=== PATIENT | male | born 1955 | race Caucasian/White ===

== ENCOUNTER 2017-03-22 15:22 | Emergency (ER) | payer BC ==
[~2017-03-22] VITALS: Ht 177.8 cm; Wt 104.0 kg
[2017-03-22] MEDS ORDERED: TETANUS, DIPHTHERIA, PERTUSSIS VAC/PF 0.5ML (>7YR OLD) IM ONE (18:00)
[2017-03-22] MEDS ORDERED: IBUPROFEN 600MG TABLET PO ONE (18:00)
[2017-03-22] MEDS ORDERED: BACITRACIN ZINC OINT UDPKT TOP ONE (18:00)
[2017-03-22] MEDS ORDERED: CEPHALEXIN 500MG CAPSULE PO ONE (18:00)
[2017-03-22 18:32] VITALS: BP 144/87
== END 2017-03-22 19:15 | disposition home or self-care (01) ==
LOC: ER 15:22
DX: L03.116 Cellulitis of left lower limb (principal); I10 Essential (primary) hypertension; L40.50 Arthropathic psoriasis, unspecified
CPT/HCPCS: 90471; 90715; 99283

== ENCOUNTER 2017-07-03 19:14 | Emergency (ER) | payer BC ==
[~2017-07-03] VITALS: Ht 180.3 cm; Wt 100.0 kg
[~2017-07-03 19:14] MED LIST: CEPH-569 PO; LISI10TA5 PO; SULF1TAB48 PO
[2017-07-03] MEDS ORDERED: ASPIRIN 81MG TABLET PO ONE (20:15)
[2017-07-03 20:25] LABS: BASOPHILS % 0.5 % (0.0-2.0); EOSINOPHILS % 1.6 % (0.0-5.0); HEMATOCRIT. 40.7 % (42.0-52.0); HEMOGLOBIN. 13.5 g/dL (14.0-18.0); LYMPHOCYTES % 18.8 % (20.0-50.0); MEAN CORPUSCULAR HEMOGLOBIN 29.1 pg (28.0-32.0); MEAN CORPUSCULAR VOLUME 87.6 fL (80.0-94.0); MEAN PLATELET VOLUME 8.3 fl (7.4-10.4); MONOCYTES % 8.4 % (2.0-8.0); NEUTROPHILS % 70.7 % (40.0-76.0); PLATELET 179 x1000/uL (130-400); RED BLOOD CELL COUNT 4.65 mill/uL (4.7-6.1); RED CELL DISTRIBUTION WIDTH 14.1 % (11.6-14.6)
[2017-07-03 20:27] LABS: CHLORIDE 101 mEq/L (98-107)
[2017-07-03 20:28] LABS: PROTHROMBIN TIME 10.3 sec (9.4-11.6)
[2017-07-03 20:30] LABS: CARBON DIOXIDE 30 mEq/L (21-32)
[2017-07-03 20:38] LABS: TROPONIN I < 0.02 ng/mL (0.00-0.04)
[2017-07-03 22:23] VITALS: BP 128/79
== END 2017-07-03 22:22 | disposition home or self-care (01) ==
LOC: ER 19:37
DX: R94.31 Abnormal electrocardiogram [ECG] [EKG] (principal); E86.0 Dehydration; I10 Essential (primary) hypertension; M19.90 Unspecified osteoarthritis, unspecified site; L40.9 Psoriasis, unspecified
CPT/HCPCS: 36415; 71010; 80053; 83880; 84484; 85025; 85610; 93005; 99285

== ENCOUNTER 2017-08-22 13:37 | Emergency (ER) | payer BC ==
[~2017-08-22] VITALS: Ht 177.8 cm; Wt 100.0 kg
[2017-08-22] MEDS ORDERED: VANCOMYCIN 1 G PREMIX 200 ML IV SCH (13:45)
[2017-08-22 14:46] LABS: BASOPHILS % 0.7 % (0.0-2.0); EOSINOPHILS % 0.9 % (0.0-5.0); HEMATOCRIT. 45.5 % (42.0-52.0); HEMOGLOBIN. 15.2 g/dL (14.0-18.0); LYMPHOCYTES % 10.4 % (20.0-50.0); MEAN CORPUSCULAR HEMOGLOBIN 29.3 pg (28.0-32.0); MEAN CORPUSCULAR VOLUME 87.8 fL (80.0-94.0); MONOCYTES % 8.3 % (2.0-8.0); NEUTROPHILS % 79.7 % (40.0-76.0); PLATELET 238 x1000/uL (130-400); RED BLOOD CELL COUNT 5.18 mill/uL (4.7-6.1); RED CELL DISTRIBUTION WIDTH 14.2 % (11.6-14.6)
[2017-08-22 14:52] LABS: CHLORIDE 99 mEq/L (98-107)
[2017-08-22 14:54] LABS: PROTHROMBIN TIME 10.2 sec (9.4-11.6)
[2017-08-22 15:01] LABS: CARBON DIOXIDE 27 mEq/L (21-32)
[2017-08-22 18:24] LABS: CLARITY URINE CLEAR (CLEAR); COLOR URINE YELLOW (YELLOW); KETONES URINE TRACE (NEGATIVE); LEUKOCYTE ESTERASE URINE NEGATIVE (NEGATIVE); NITRITE URINE NEGATIVE (NEGATIVE); OCCULT BLOOD URINE NEGATIVE (NEGATIVE); PROTEIN URINE NEGATIVE (NEGATIVE); UROBILINOGEN URINE 0.2 E.U./dL (0.2-1.0)
[2017-08-22] MEDS ORDERED: HYDROCODONE/ACETAMINOPHEN 5/325MG TABLET PO ONE (18:45)
[2017-08-22] MEDS ORDERED: ONDANSETRON HCL 4MG/2ML VIAL IV ONE (18:45)
[2017-08-22] MEDS ORDERED: MORPHINE SULFATE 4 MG/ML CPJ (NOT FOR IM USE) IV ONE (18:45)
[2017-08-22] MEDS ORDERED: LIDOCAINE HCL 1% 20ML VIAL (Pyxis) INJ MC ONE (19:00)
[2017-08-22] MEDS ORDERED: KETOROLAC 30MG/ML VIAL IV ONE (20:45)
[2017-08-22 21:59] VITALS: BP 109/67
== END 2017-08-22 21:59 | disposition home or self-care (01) ==
LOC: ER 13:37
DX: L02.415 Cutaneous abscess of right lower limb (principal); I10 Essential (primary) hypertension; M19.90 Unspecified osteoarthritis, unspecified site
CPT/HCPCS: 10060; 36415; 73562; 80053; 81003; 85025; 85610; 85651; 86140; 87040; 87086; 96365; 96366; 96375; 99285; J1885; J2405; J3370; J3490; Z7610

== ENCOUNTER 2017-10-02 07:24 | Emergency (ER) | payer BC ==
[~2017-10-02] VITALS: Ht 177.8 cm; Wt 105.0 kg
[2017-10-02] MEDS ORDERED: KETOROLAC 30MG/ML VIAL IV STA (09:19)
[2017-10-02] MEDS ORDERED: SODIUM CHLORIDE 0.9% 1,000 ML IV ONE (09:19)
[2017-10-02] MEDS ORDERED: DEXAMETHASONE 10 MG/ML VIAL IV ONE (09:30)
[2017-10-02] MEDS: KETOROLAC 60MG/2ML VIAL IM ONE ×2 (09:38→09:43)
[2017-10-02] MEDS ORDERED: DEXAMETHASONE 10 MG/ML VIAL IM ONE ×2 (09:45)
[2017-10-02] MEDS ORDERED: IBUPROFEN 600MG TABLET PO ONE (09:45)
[2017-10-02 09:46] VITALS: BP_DIAS 80
[2017-10-02 11:04] VITALS: BP_SYST 125
== END 2017-10-02 11:08 | disposition home or self-care (01) ==
LOC: ER 07:36
DX: L03.211 Cellulitis of face (principal); I10 Essential (primary) hypertension; Z87.891 Personal history of nicotine dependence; Z98.890 Other specified postprocedural states
CPT/HCPCS: 96372; 99284; J1100; J1885; J7030; Z7610

== ENCOUNTER 2020-03-14 13:08 | Emergency (ER) | payer BC ==
[~2020-03-14] VITALS: Ht 177.8 cm; Wt 100.0 kg
[2020-03-14 13:16] VITALS: BP 134/93
[2020-03-14] MEDS ORDERED: LIDOCAINE HCL 1% 20ML VIAL (Pyxis) INJ INFIL ONE (13:30)
[2020-03-14] MEDS ORDERED: TETANUS, DIPHTHERIA, PERTUSSIS VAC/PF 0.5ML (>7YR OLD) IM ONE (13:30)
[2020-03-14] MEDS ORDERED: BACITRACIN ZINC OINT UDPKT TOP ONE (13:45)
[2020-03-14] MEDS ORDERED: IBUPROFEN 600MG TABLET PO ONE (14:15)
== END 2020-03-14 15:10 | disposition home or self-care (01) ==
LOC: ER 13:34
DX: S61.011A Laceration without foreign body of right thumb without damage to nail, initial encounter (principal); Z98.890 Other specified postprocedural states; Z79.899 Other long term (current) drug therapy; W26.8XXA Contact with other sharp object(s), not elsewhere classified, initial encounter; Y93.89 Activity, other specified; Y92.89 Other specified places as the place of occurrence of the external cause; Y99.8 Other external cause status
CPT/HCPCS: 12001; 73140; 90471; 90715; 99283; J3490; 12002